=== PATIENT | male | born 1955 | race Caucasian/White ===

== ENCOUNTER 2022-01-19 21:18 | Emergency (ER) | payer OTHER ==
[2022-01-19 21:49] LABS: Absolute Lymphocytes (CBC) 3.7 K/uL (0.7-4.9); Hematocrit 45.1 % (39.6-49.0); Lymphocytes % 18.1 % (15.3-44.8); MPV 8.2 fL (7.6-11.3); RBC Red Blood Cell Count 4.74 M/uL (4.33-5.43)
[2022-01-19 22:34] LABS: Potassium 3.6 mmol/L (3.5-5.1)
[2022-01-19 22:58] LABS: Blood Morphology Comment NOT SEEN (NOT SEEN); Platelet Estimate ADEQ
[2022-01-19] MEDS ORDERED: MORPHINE 4 MG/ML SYR ONE (23:54)
[2022-01-19] MEDS ORDERED: TETANUS & DIPHTHERIA TOX,ADULT 0.5 ML VIAL ONE (23:54)
[2022-01-19] MEDS ORDERED: ONDANSETRON 4 MG/2 ML VIAL ONE (23:54)
[2022-01-19] MEDS ORDERED: LIDOCAINE 1% W/EPI 1:100,000 MDV 50 ML VIAL ONE (23:54)
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
[2022-01-20] MEDS ORDERED: HYDROCODONE/APAP 7.5/325 MG TAB ONE (01:14)
[2022-01-20 01:30] VITALS: TEMP 98.4
[2022-01-20 02:07] VITALS: BP 115/70; O2SAT 94
--- NOTE | 2022-01-20 14:06 | RAD REPORT ---
EXAM DESCRIPTION: CT - Head C Spine Cap W Con - 01/20/2022 4:45 am TECHNIQUE: Computerized axial tomography of the abdomen and pelvis was performed after the administr ation of IV iodinated nonionic contrast. This exam was performed according to our department optimiza tion program which includes automated exposure control, adjustment of the mA and/or KV according to p atient size and/or use of iterative reconstruction technique. CLINICAL HISTORY: Abdominal pain COMPARISON: None . FINDINGS: Visualized lower thorax: No significant abnormality. Liver: Normal size and attenuation. Spleen: Normal size and attenuation. Gallbladder and biliary system: Possible gallbladder wall thickening, not fully evaluated. Gallbladde r is distended. Pancreas: Normal. Adrenals: Normal. Kidneys: Normal. GI tract: Sigmoid diverticulosis. No bowel obstruction or acute inflammation. Appendix is normal in CT appearance. There is a small hiatal hernia. Lymph nodes and mesentery: Normal. Vasculature: No abdominal aortic aneurysm or dissection. Bladder: Unremarkable CT appearance. Reproductive organs: Grossly unremarkable. Peritoneum: No free fluid. Musculoskeletal structures: Bilateral L5 pars interarticularis defects. 9 mm sclerotic lesion in the left iliac bone, without aggressive features identified by CT. Other: None. IMPRESSION: The gallbladder is distended, with possible gallbladder wall thickening. If there is con cern for gallbladder pathology, further evaluation could be made with gallbladder ultrasound. Sigmoid diverticulosis, with no acute inflammatory changes identified. Small hiatal hernia. Bilateral L5 pars interarticularis defects. Electronically signed by: Sheila Tomlinson MD 01/20/2022 6:15 AM [employer] Due to temporary technical issues with the PACS/Fluency reporting system, reports are being signed by the in house radiologists without review as a courtesy to insure prompt reporting. The interpreting radiologist is fully responsible for the content of the report.
== END 2022-01-20 01:25 | disposition home or self-care (01) ==
LOC: ER 21:18
PROC: 0JQ10ZZ Repair Face Subcutaneous Tissue and Fascia, Open Approach (ICD-10-PCS; principal; 2022-01-20)
DX: S01.111A Laceration without foreign body of right eyelid and periocular area, initial encounter (principal); S01.81XA Laceration without foreign body of other part of head, initial encounter; G89.11 Acute pain due to trauma; Z23 Encounter for immunization; I10 Essential (primary) hypertension; V03.90XA Pedestrian on foot injured in collision with car, pick-up truck or van, unspecified whether traffic or nontraffic accident, initial encounter
CPT/HCPCS: 85025; 80048; 36415; 86900; 86850; 86901; 70450; 72125; 71260; 74177; 90471; 90714; 96375; 96374; 99285; 12015; Q9967; J2405